=== PATIENT | female | born 1965 | race Caucasian/White ===

== ENCOUNTER → 2020-08-15 16:17 | Outpatient (CLI) | payer OTHER, SELFPAY ==
--- NOTE | ~2020-08-15 | XR_ITS ---
EXAMINATION: XR lumbar spine 2-3V DATE: 08/15/2020 16:34 INDICATION: Low back pain. TECHNIQUE: 3 views of lumbar spine were obtained. COMPARISON: None. FINDINGS: There is 12 degrees dextroscoliosis of thoracolumbar spine. Vertebral body heights are norm al. There is mildly decreased disc height at L2-L3. There are endplate osteophytes at most levels. Th ere is multilevel mild facet joint osteoarthritis. IMPRESSION: 1. Mild lumbar spondylosis. 2. Thoracolumbar dextroscoliosis. Reviewed, dictated and finalized at location A.
== END ==
PROVIDERS: PCP Family Medicine; Visit Provider Family Medicine
DX: M47.896 Other spondylosis, lumbar region (principal)
CPT/HCPCS: 72100

== ENCOUNTER → 2020-10-06 11:54 | Outpatient (CLI) | payer OTHER, SELFPAY ==
--- NOTE | ~2020-10-06 | CT_ITS ---
EXAMINATION: CT sinus wo con EXAM DATE: 10/06/2020 12:11 INDICATION: J32.9 Chronic sinusitis, unspecified . TECHNIQUE: Spiral CT of the sinuses was acquired in the axial plane. Coronal and sagittal reformatte d images were also reviewed. The dose-length product (DLP) for this examination was 292.39 mGy-cm. Iterative reconstruction (ASIR) was used as dose reduction technique. There is no prior study for co mparison. FINDINGS: The sinuses are normally developed. Minimal mucoperiosteal thickening. Tiny right maxill julián sinus retention cyst. Mild S-shaped nasal septal deviation. The ostiomeatal units are patent. There is no sinus wall thickening. Small bilateral stefany bullosa. The mastoid air cells and midd le ears are well aerated. External auditory canals are patent. The orbits and visualized soft tis sues are unremarkable. IMPRESSION: Minimal mucoperiosteal thickening. Reviewed, dictated and finalized at location B. KER WIRER
== END ==
PROVIDERS: Visit Provider Otolaryngology
DX: J32.9 Chronic sinusitis, unspecified (principal)
CPT/HCPCS: 70486

== ENCOUNTER → 2022-07-12 12:05 | Outpatient (CLI) | payer OTHER, SELFPAY ==
--- NOTE | ~2022-07-12 | MR_ITS ---
EXAMINATION: MR brain/brain stem wo/w con DATE: 07/12/2022 12:52 INDICATION: Migraine headache. TECHNIQUE: Magnetic resonance imaging (MRI) of the brain and brainstem was performed without and with 13 mL MultiHance intravenous contrast. COMPARISON: None. FINDINGS: There is no intracranial hemorrhage, acute infarction, or abnormal intracranial mass lesion . The ventricles are normal in size. The paranasal sinuses are clear. The orbits are normal. The mast oid air cells are normal. IMPRESSION: 1. Normal brain. Reviewed, dictated and finalized at location A. IMPRESSION: 1. Normal brain.
--- NOTE | ~2022-07-12 | XR_ITS ---
XR cervical spine 4-5V DATE: 07/12/2022 13:09 INDICATION: Neck pain TECHNIQUE: Standing AP, open-mouth, lateral and swimmer views COMPARISON: None FINDINGS: C1 and C2 are normally aligned and the odontoid process is intact. There is minimal anterol isthesis at C3-4. No fracture or dislocation, locked facet or prevertebral soft tissue swelling is detected. There is mild loss of interspace height at C4-5, moderate loss of interspace height at C5-6. IMPRESSION: Mild cervical spondylosis Minimal anterolisthesis at C3-4 Reviewed, dictated and finalized at location B.
== END ==
PROVIDERS: PCP Family Medicine; Visit Provider Family Medicine
DX: G43.909 Migraine, unspecified, not intractable, without status migrainosus (principal); M54.2 Cervicalgia; M47.812 Spondylosis without myelopathy or radiculopathy, cervical region; M43.12 Spondylolisthesis, cervical region
CPT/HCPCS: 70553; 72050; A9577